=== PATIENT | male | born 1950 | race American Indian/Alaskan Native ===

== ENCOUNTER 2017-06-13 19:35 | Inpatient (IN) | payer MEDICARE, OTHER ==
[2017-06-13] MEDS ORDERED: ASPIRIN PO ONE (20:34)
[2017-06-13 20:51] LABS: Basophils % (Auto) 0.8 % (0.0-1.8); Eosinophils % (Auto) 0.6 % (0.0-4.3); Hematocrit 45.7 % (35.5-45.6); Hemoglobin 14.8 gm/dl (11.8-15.2); Lymphocytes # (Auto) 1.7 K/mm3 (1.2-5.4); Lymphocytes % (Auto) 30.5 % (13.4-35.0); Mean Corpuscular HGB Conc 32 % (32-34); Mean Corpuscular Hemoglobin 30 pg (28-32); Mean Corpuscular Volume 93 fl (84-94); Monocytes # (Auto) 0.5 K/mm3 (0.0-0.8); Monocytes % (Auto) 9.4 % (0.0-7.3); Platelet Count 149 K/mm3 (140-440); Red Blood Count 4.94 M/mm3 (3.65-5.03); Red Cell Distribution Width 15.1 % (13.2-15.2)
[2017-06-13 21:10] LABS: BUN/Creatinine Ratio 13; Blood Urea Nitrogen 10 mg/dL (9-20); Calcium 9.1 mg/dL (8.4-10.2); Hemolysis Index 12
[2017-06-14] MEDS ORDERED: TYLENOL PO ONE (02:55)
[2017-06-14] MEDS ORDERED: TYLENOL ONE (02:56)
--- NOTE | 2017-06-14 10:04 | Emergency Department Report ---
ED Neuro Deficit HPI - General Chief Complaint: Dizziness Stated Complaint: CP Time Seen by Provider: 06/14/17 09:13 Source: patient, RN notes reviewed Mode of arrival: Ambulatory Limitations: No Limitations - History of Present Illness Initial Comments: This is a 66-year-old male. The patient is previously known to this provider. He reports that he does not have a local primary care doctor and denies chronic medical conditions. Patient presents to the ER with a sensation of unsteady gait and headache. The headache is frontal, started yesterday at 2:00 in the afternoon. The headache is not sudden or thunderclap in nature. It did not reach maximal intensity within an hour. It is not the worse headache of his life. There is no neck pain or neck stiffness. Patient denies tinnitus, vertigo, chest pain, shortness of breath, abdominal pain, irritative, obstructive urinary symptoms. Patient reports his sensation of headache and unsteady gait have been intermittent since yesterday, do not radiate anywhere, and did not have exacerbating or relieving factors, with the exception of ambulation, which worsens his sensation of unsteadiness. -: Gradual Location: ataxia Presenting Symptoms: Absent: Weak/Paralyzed One Side, Blurred/Loss of Vision, Facial Droop/Numbness, Unable to Speak Clearly, Altered Mental Status History of same: No Place: home Severity: moderate Quality: other (as per history of present illness) Improves With: none Worsens With: other (as per history of present illness) On Anticoagulants: No Context: gradual onset Associated Symptoms: headaches. denies: confusion, chest pain, cough, diaphoresis, fever/chills, loss of appetite, malise, nausea/vomiting, seizures, shortness of breath, syncope, weakness - Related Data Home Medications: Home Medications Medication Instructions Recorded Confirmed Last Taken Mv-Mn/Iron/Folic Acid/Herb 190 1 each PO 03/15/13 03/15/13 03/14/13 [Vitamin D3 Complete Caplet] Ranitidine HCl [Zantac 300 MG TAB] 300 mg PO 03/15/13 03/15/13 03/14/13 Allergies/Adverse Reactions: Allergies Allergy/AdvReac Type Severity Reaction Status Date / Time No Known Allergies Allergy Verified 06/13/17 19:58 ED Review of Systems ROS: Stated complaint: CP Other details as noted in HPI ED Past Medical Hx - Past Medical History Previous Medical History?: No - Surgical History Past Surgical History?: No - Social History Smoking Status: Current Every Day Smoker Substance Use Type: None - Medications Home Medications: Home Medications Medication Instructions Recorded Confirmed Last Taken Type Mv-Mn/Iron/Folic Acid/Herb 190 1 each PO 03/15/13 03/15/13 03/14/13 History [Vitamin D3 Complete Caplet] Ranitidine HCl [Zantac 300 MG TAB] 300 mg PO 03/15/13 03/15/13 03/14/13 History ED Neuro Physical Exam - General Limitations: No Limitations General appearance: alert, in no apparent distress Suspected Stroke: Yes - Head Head exam: Present: atraumatic, normocephalic - Eye Eye exam: Present: normal appearance, PERRL, EOMI - ENT ENT exam: Present: normal exam, normal orophraynx, mucous membranes moist, normal external ear exam - Neck Neck exam: Present: normal inspection, full ROM - Respiratory Respiratory exam: Present: normal lung sounds bilaterally. Absent: respiratory distress - Cardiovascular Cardiovascular Exam: Present: regular rate, normal rhythm, normal heart sounds. Absent: systolic murmur, diastolic murmur, rubs, gallop - GI/Abdominal GI/Abdominal exam: Present: soft, normal bowel sounds. Absent: distended, tenderness, guarding, rebound, rigid, pulsatile mass - Rectal Rectal exam: Present: deferred - Extremities Exam Extremities exam: Present: normal inspection, full ROM, normal capillary refill. Absent: tenderness, pedal edema, joint swelling, calf tenderness - Back Exam Back exam: Present: normal inspection, full ROM. Absent: tenderness, CVA tenderness (R), paraspinal tenderness, vertebral tenderness - Neurological Exam Neurological exam: Present: alert, oriented X3, CN II-XII intact, other ( Extraocular movements intact. Tongue midline. No facial droop. Facial sensation intact to light touch in the V1, V2, V3 distribution bilaterally. 5 and 5 strength in 4 extremities.. Sensation is intact to light touch in 4 extremities.). Absent: motor sensory deficit - NIHSS Assessment Interval: Baseline 1a. Level of Consciousness: alert 1b. LOC Questions: answers correctly 1c. LOC Commands: performs tasks correctly 2. Best Gaze: normal 3. Visual: no visual loss 4. Facial Palsy: normal symmetrical movement 5b. Motor Arm Right: no drift 5a. Motor Arm Left: no drift 6a. Motor Leg Left: no drift 6b. Motor Leg Right: no drift 7. Limb Ataxia: present 1 limb 8. Sensory: normal 9. Best Language: no aphasia 10. Dysarthria: normal 11. Extinction/Inattention: no abnormality Total Score: 1 Stroke Severity: Minor Stroke - Psychiatric Psychiatric exam: Present: normal affect, normal mood - Skin Skin exam: Present: warm, dry, intact, normal color. Absent: rash ED Course Vital Signs 06/13/17 06/14/17 19:55 03:56 Temperature 98.1 F 98.1 F Pulse Rate 86 78 Respiratory 20 20 Rate Blood Pressure 130/91 158/83 O2 Sat by Pulse 97 97 Oximetry - Lab Data Result diagrams: 06/13/17 20:36 06/13/17 20:36 Lab Results 06/13/17 06/13/17 06/13/17 Range/Units 20:36 20:36 23:26 WBC 5.7 (4.5-11.0) K/mm3 RBC 4.94 (3.65-5.03) M/mm3 Hgb 14.8 (11.8-15.2) gm/dl Hct 45.7 H (35.5-45.6) % MCV 93 (84-94) fl MCH 30 (28-32) pg MCHC 32 (32-34) % RDW 15.1 (13.2-15.2) % Plt Count 149 (140-440) K/mm3 Lymph % (Auto) 30.5 (13.4-35.0) % Rich % (Auto) 9.4 H (0.0-7.3) % Eos % (Auto) 0.6 (0.0-4.3) % Baso % (Auto) 0.8 (0.0-1.8) % Lymph # 1.7 (1.2-5.4) K/mm3 Rich # 0.5 (0.0-0.8) K/mm3 Eos # 0.0 (0.0-0.4) K/mm3 Baso # 0.0 (0.0-0.1) K/mm3 Seg Neutrophils % 58.7 (40.0-70.0) % Seg Neutrophils # 3.3 (1.8-7.7) K/mm3 Sodium 139 (137-145) mmol/L Potassium 4.4 (3.6-5.0) mmol/L Chloride 99.3 (98-107) mmol/L Carbon Dioxide 27 (22-30) mmol/L Anion Gap 17 mmol/L BUN 10 (9-20) mg/dL Creatinine 0.8 (0.8-1.5) mg/dL Estimated GFR > 60 ml/min BUN/Creatinine Ratio 13 % Glucose 118 H (75-100) mg/dL Calcium 9.1 (8.4-10.2) mg/dL Troponin T < 0.010 < 0.010 (0.00-0.029) ng/mL 06/14/17 Range/Units 02:14 WBC (4.5-11.0) K/mm3 RBC (3.65-5.03) M/mm3 Hgb (11.8-15.2) gm/dl Hct (35.5-45.6) % MCV (84-94) fl MCH (28-32) pg MCHC (32-34) % RDW (13.2-15.2) % Plt Count (140-440) K/mm3 Lymph % (Auto) (13.4-35.0) % Rich % (Auto) (0.0-7.3) % Eos % (Auto) (0.0-4.3) % Baso % (Auto) (0.0-1.8) % Lymph # (1.2-5.4) K/mm3 Rich # (0.0-0.8) K/mm3 Eos # (0.0-0.4) K/mm3 Baso # (0.0-0.1) K/mm3 Seg Neutrophils % (40.0-70.0) % Seg Neutrophils # (1.8-7.7) K/mm3 Sodium (137-145) mmol/L Potassium (3.6-5.0) mmol/L Chloride (98-107) mmol/L Carbon Dioxide (22-30) mmol/L Anion Gap mmol/L BUN (9-20) mg/dL Creatinine (0.8-1.5) mg/dL Estimated GFR ml/min BUN/Creatinine Ratio % Glucose (75-100) mg/dL Calcium (8.4-10.2) mg/dL Troponin T < 0.010 (0.00-0.029) ng/mL - EKG Data -: EKG Interpreted by Sd EKG shows normal: sinus rhythm 06/14/17 10:41 Sinus, 70 beats minute, normal axis, normal intervals, not morphologically consistent myocardial infarction - Radiology Data Radiology results: report reviewed, image reviewed Referring Physician: ALONZO ZABALA Patient Name: SUJATA MANCUSO Date of : 1950 Sex: Male Report Date: 2017-06-14 Report Status: Finalized Findings [facility] [address] [id number] Cat Scan Report Signed Patient: SUJATA MANCUSO MR#: [id number] : 1950 Acct:[id number] Age/Sex: 66 / M ADM Date: 06/13/17 Loc: ED Attending Dr: Ordering Physician: ALONZO ZABALA MD Date of Service: 06/14/17 Procedure(s): CT head/brain wo con Accession Number(s): [id number] cc: ALONZO ZABALA MD CT HEAD WITHOUT CONTRAST: 06/14/17 CLINICAL: Ataxia. TECHNIQUE: 2.5-mm noncontrast scans. COMPARISON:None FINDINGS: The ventricles and sulci are normal for age.Large bilateral inferior cerebellar hypodensities are consistent with nonhemorrhagic infarcts of varying ages. The oldest is on the right and measures approximately 4.5 x 2.5 x 1.5 cm. It is uniformly hypodense and measures 13 Hounsfield units. Left cerebellar left cerebellar hypodensity measures 4.6 x 2.9 x 3.3 cm is more heterogeneous and measures 22 Hounsfield units at its lowest level. Mild bilateral periventricular white matter hypodensities in a few tiny bilateral frontal lobe white matter chronic lacunar infarcts. No mass or mass effect. No hemorrhage, edema or extra-axial collection. The sinuses are clear. Normal orbits and soft tissues. The calvarium and skull base are intact. IMPRESSION: Chronic right nonhemorrhagic cerebellar infarct and probable late subacute to chronic left nonhemorrhagic cerebellar infarcts. MRI would be more definitive in determining if there is superimposed acute or early subacute left cerebellar infarct. Transcribed By: REF Dictated By: SANDI SAUNDERS MD Electronically Authenticated By: SANDI SAUNDERS MD Signed Date/Time: 06/14/17954 DD/ 5 - Medical Decision Making Referring Physician: ALONZO ZABALA Patient Name: SUJATA MANCUSO Date of : 1950 Sex: Male Report Date: 2017-06-14 Report Status: Finalized Findings [facility] [address] [place] [address] Cat Scan Report Signed Patient: SUJATA MANCUSO MR#: [id number] : 1950 Acct:[id number] Age/Sex: 66 / M ADM Date: 06/13/17 Loc: ED Attending Dr: Ordering Physician: ALONZO ZABALA MD Date of Service: 06/14/17 Procedure(s): CT head/brain wo con Accession Number(s): [id number] cc: ALONZO ZABALA MD CT HEAD WITHOUT CONTRAST: 06/14/17 CLINICAL: Ataxia. TECHNIQUE: 2.5-mm noncontrast scans. COMPARISON:None FINDINGS: The ventricles and sulci are normal for age.Large bilateral inferior cerebellar hypodensities are consistent with nonhemorrhagic infarcts of varying ages. The oldest is on the right and measures approximately 4.5 x 2.5 x 1.5 cm. It is uniformly hypodense and measures 13 Hounsfield units. Left cerebellar left cerebellar hypodensity measures 4.6 x 2.9 x 3.3 cm is more heterogeneous and measures 22 Hounsfield units at its lowest level. Mild bilateral periventricular white matter hypodensities in a few tiny bilateral frontal lobe white matter chronic lacunar infarcts. No mass or mass effect. No hemorrhage, edema or extra-axial collection. The sinuses are clear. Normal orbits and soft tissues. The calvarium and skull base are intact. IMPRESSION: Chronic right nonhemorrhagic cerebellar infarct and probable late subacute to chronic left nonhemorrhagic cerebellar infarcts. MRI would be more definitive in determining if there is superimposed acute or early subacute left cerebellar infarct. Transcribed By: REF Dictated By: SANDI SAUNDERS MD Electronically Authenticated By: SANDI SAUNDERS MD Signed Date/Time: 06/14/17954 DD/ 5 Differential diagnosis, including would not limited to: Subacute stroke, intracranial hemorrhage Assessment and plan: 66-year-old male who presents with probable subacute stroke as evidenced by physical exam findings and noncontrast CT scan of the brain. Not a TPA candidate as patient presented more than 4.5 hours after symptoms, not an endovascular candidate for similar reasons. His case, physical exam findings and CT scan were transmitted to consult in neurology at [facility], Dr. Alves; he indicates that based on the CT scan findings and physical exam findings the patient does not require transfer at this time, he does recommend aspirin, Lipitor 40 mg, MRI of the brain, and advance imaging of the neck, either CT angiogram, or MR angiogram. He also recommends echocardiogram. He further indicates that he can be contacted at any time if the patient's clinical situation changes or deteriorates. The case was then presents to our Hospital physician, Dr. Suleiman Covington, who graciously accepted the patient to the medical service on behalf of Dr. Aisha Mancuso - Differential Diagnosis Referring Physician:ALONZO ZABALA - Core Measures Measure Exclusions: not indicated - Thrombolytic Inclusion/Exclusion Thrombolytic Exclusion Criteria: Symptom Onset > 3 Hours Critical care attestation.: If time is entered above; I have spent that time in minutes in the direct care of this critically ill patient, excluding procedure time. ED Disposition Clinical Impression: Stroke Disposition: 09 OP ADMIT IP TO THIS HOSP Is pt being admited?: Yes Does the pt Need Aspirin: Yes Condition: Good Referrals: PRIMARY CARE, [Primary Care Provider] - 3-5 Days
--- NOTE | 2017-06-14 10:12 | Cat Scan Report ---
CT HEAD WITHOUT CONTRAST: 06/14/17 CLINICAL: Ataxia. TECHNIQUE: 2.5-mm noncontrast scans. COMPARISON:None FINDINGS: The ventricles and sulci are normal for age.Large bilateral inferior cerebellar hypodensities are consistent with nonhemorrhagic infarcts of varying ages. The oldest is on the right and measures approximately 4.5 x 2.5 x 1.5 cm. It is uniformly hypodense and measures 13 Hounsfield units. Left cerebellar left cerebellar hypodensity measures 4.6 x 2.9 x 3.3 cm is more heterogeneous and measures 22 Hounsfield units at its lowest level. Mild bilateral periventricular white matter hypodensities in a few tiny bilateral frontal lobe white matter chronic lacunar infarcts. No mass or mass effect. No hemorrhage, edema or extra-axial collection. The sinuses are clear. Normal orbits and soft tissues. The calvarium and skull base are intact. IMPRESSION: Chronic right nonhemorrhagic cerebellar infarct and probable late subacute to chronic left nonhemorrhagic cerebellar infarcts. MRI would be more definitive in determining if there is superimposed acute or early subacute left cerebellar infarct.
[2017-06-14] MEDS ORDERED: BABY ASPIRIN PO ONE ×2 (10:46→11:18)
[2017-06-14] MEDS ORDERED: DULCOLAX PR PRN (10:52)
[2017-06-14] MEDS ORDERED: ZOFRAN IV PRN (10:52)
[2017-06-14] MEDS ORDERED: REGLAN PO PRN (10:52)
[2017-06-14] MEDS ORDERED: MILK OF MAGNESIA PO PRN (10:52)
[2017-06-14] MEDS ORDERED: SODIUM CHLORIDE FLUSH SYRINGE 10 ML IV PRN (10:52)
[2017-06-14] MEDS ORDERED: PHENERGAN PR PRN (10:52)
[2017-06-14] MEDS ORDERED: TYLENOL PO PRN (10:52)
[2017-06-14] MEDS ORDERED: PLAVIX PO ONE (11:17)
[2017-06-14] MEDS ORDERED: ATIVAN IV ONE (11:17)
--- NOTE | 2017-06-14 11:20 | History and Physical Report ---
History of Present Illness Date of examination: 06/14/17 Date of admission: 06/14/17 Chief complaint: DIZZINESS WITH HEADACHE History of present illness: Patient is a 66-year-old male with no significant past medical history who presents to the ER with complaints of unsteady gait and headache. He reports that this started about 2 AM in the afternoon he presented to the ER about 7 PM same day. He denies sudden or thunderclap in nature. It did not reach maximal intensity within an hour. It is not the worse headache of his life. There is no neck pain or neck stiffness. Patient reports photophobia and phonophobia but denies history of migraines.Patient denies tinnitus, vertigo, chest pain, shortness of breath, abdominal pain, irritative, obstructive urinary symptoms. The headache he related a 5 foot 10 in intensity. When my examination he was irritated that he had not received any pain medication. Although he denies history of stroke he states that prior to the headaches start in that he did have an emotional arguments with a family member. He was good enough distress that this was not his . He denied any chest pain shortness of breath Patient reports his sensation of headache and unsteady gait have been intermittent since yesterday, do not radiate anywhere, and did not have exacerbating or relieving factors, with the exception of ambulation, which worsens his sensation of unsteadiness. ROS Constitutional: No fever, fatigue or weight loss. Skin: No rash. Eyes: Reports photophobia and phonophobia. No recent vision problems or eye pain. ENT: No congestion, ear pain, or sore throat. Endocrine: No thyroid problems. Cardiovascular: No chest pain. Respiratory: No cough, shortness of breath, congestion, or wheezing. Gastrointestinal: No abdominal pain, nausea, vomiting, or diarrhea. Genitourinary: No dysuria. Musculoskeletal: No joint swelling. Neurologic: Reports ataxic gait but no No seizures, Weak/Paralyzed One Side, Blurred/Loss of Vision, Facial Droop/Numbness, Unable to Speak Clearly, Altered Mental Status Hematologic: No unusual bruising or bleeding. Psychiatric: No psychiatric problems, hallucinations or depression. All other systems reviewed and otherwise negative. Past History Past Medical History: GERD Past Surgical History: No surgical history Social history: , lives with family, full code. denies: smoking, IV drug use Family history: no significant family history Medications and Allergies Allergies Allergy/AdvReac Type Severity Reaction Status Date / Time No Known Allergies Allergy Verified 06/13/17 19:58 Home Medications Medication Instructions Recorded Confirmed Last Taken Type Aspirin 81 mg PO DAILY 06/14/17 06/14/17 1 Day Ago History ~06/13/17 Pantoprazole [Protonix] 40 mg PO QDAY 06/14/17 06/14/17 1 Day Ago History ~06/13/17 Active Meds: Active Medications Acetaminophen (Tylenol) 650 mg PO Q4H PRN PRN Reason: Pain, Mild (1-3) Acetaminophen/Butalbital/Caffeine (Fioricet) 1 tab PO Q4H PRN PRN Reason: Headache Aspirin (Baby Aspirin) 81 mg PO ONCE ONE Stop: 06/14/17 11:19 Atorvastatin Calcium (Lipitor) 40 mg PO QHS DONTE Bisacodyl (Dulcolax) 10 mg [place] QDAY PRN PRN Reason: Constipation Clopidogrel Bisulfate (Plavix) 75 mg PO ONCE ONE Stop: 06/14/17 11:18 Lorazepam (Ativan) 1 mg IV ONCE ONE Stop: 06/14/17 11:18 Magnesium Hydroxide (Milk Of Magnesia) 30 ml PO Q4H PRN PRN Reason: Constipation Metoclopramide HCl (Reglan) 10 mg PO Q6H PRN PRN Reason: Nausea And Vomiting Ondansetron HCl (Zofran) 4 mg IV Q8H PRN PRN Reason: N/V unrelieved by Reglan Promethazine HCl (Phenergan) 25 mg [place] Q6H PRN PRN Reason: Nausea And Vomiting Sodium Chloride (Sodium Chloride Flush Syringe 10 Ml) 10 ml IV PRN PRN PRN Reason: LINE FLUSH Exam - Physical Exam Narrative exam: VITAL SIGNS: Reviewed. GENERAL: The patient appeared well nourished and normally developed. Vital signs as documented. HEAD: No signs of head trauma. EYES: Pupils are equal. Extraocular motions intact. EARS: Hearing grossly intact. MOUTH: Oropharynx is normal. NECK: No adenopathy, no JVD. No tenderness. full range of motion as identified CHEST: Chest with clear breath sounds bilaterally. No wheezes, rales, or rhonchi. CARDIAC: Regular rate and rhythm. S1 and S2, without murmurs, gallops, or rubs. VASCULAR: No Edema. Peripheral pulses normal and equal in all extremities. ABDOMEN: Soft, without detectable tenderness. No sign of distention. No rebound or guarding, and no masses palpated. Bowel Sounds normal. MUSCULOSKELETAL: Good range of motion of all major joints. Extremities without clubbing, cyanosis or edema. NEUROLOGIC EXAM: Alert and oriented x 3. No focal sensory or strength deficits. Gait is not assessed at this time Speech normal. Follows commands. PSYCHIATRIC: Mood irritable. SKIN: No rash or lesions. - Constitutional Vitals: Temp Pulse Resp BP Pulse Ox 98.1 F 78 20 158/83 97 06/14/17 03:56 06/14/17 03:56 06/14/17 03:56 06/14/17 03:56 06/14/17 03:56 Results - Labs CBC & Chem 7: 06/13/17 20:36 06/13/17 20:36 Labs: Laboratory Last Values WBC 5.7 K/mm3 (4.5-11.0) 06/13/17 20:36 RBC 4.94 M/mm3 (3.65-5.03) 06/13/17 20:36 Hgb 14.8 gm/dl (11.8-15.2) 06/13/17 20:36 Hct 45.7 % (35.5-45.6) H 06/13/17 20:36 MCV 93 fl (84-94) 06/13/17 20:36 MCH 30 pg (28-32) 06/13/17 20:36 MCHC 32 % (32-34) 06/13/17 20:36 RDW 15.1 % (13.2-15.2) 06/13/17 20:36 Plt Count 149 K/mm3 (140-440) 06/13/17 20:36 Lymph % (Auto) 30.5 % (13.4-35.0) 06/13/17 20:36 [place] % (Auto) 9.4 % (0.0-7.3) H 06/13/17 20:36 Eos % (Auto) 0.6 % (0.0-4.3) 06/13/17 20:36 Baso % (Auto) 0.8 % (0.0-1.8) 06/13/17 20:36 Lymph # 1.7 K/mm3 (1.2-5.4) 06/13/17 20:36 [place] # 0.5 K/mm3 (0.0-0.8) 06/13/17 20:36 Eos # 0.0 K/mm3 (0.0-0.4) 06/13/17 20:36 Baso # 0.0 K/mm3 (0.0-0.1) 06/13/17 20:36 Seg Neutrophils % 58.7 % (40.0-70.0) 06/13/17 20:36 Seg Neutrophils # 3.3 K/mm3 (1.8-7.7) 06/13/17 20:36 Sodium 139 mmol/L (137-145) 06/13/17 20:36 Potassium 4.4 mmol/L (3.6-5.0) 06/13/17 20:36 Chloride 99.3 mmol/L (98-107) 06/13/17 20:36 Carbon Dioxide 27 mmol/L (22-30) 06/13/17 20:36 Anion Gap 17 mmol/L 06/13/17 20:36 BUN 10 mg/dL (9-20) 06/13/17 20:36 Creatinine 0.8 mg/dL (0.8-1.5) 06/13/17 20:36 Estimated GFR > 60 ml/min 06/13/17 20:36 BUN/Creatinine Ratio 13 % 06/13/17 20:36 Glucose 118 mg/dL (75-100) H 06/13/17 20:36 Calcium 9.1 mg/dL (8.4-10.2) 06/13/17 20:36 Troponin T < 0.010 ng/mL (0.00-0.029) 06/14/17 02:14 - Imaging and Cardiology CT Scan - head: image reviewed (chronic right nonhemorrhagic CVA and also left chronic 2 subacute CVA.) Assessment and Plan Assessment and plan: Patient is a 66-year-old male with no significant past medical history who presents to the ER with complaints of unsteady gait and headache. He reports that this started about 2 AM in the afternoon he presented to the ER about 7 PM same day. He denies sudden or thunderclap in nature. It did not reach maximal intensity within an hour. It is not the worse headache of his life. There is no neck pain or neck stiffness. Patient reports photophobia and phonophobia but denies history of migraines.Patient denies tinnitus, vertigo, chest pain, shortness of breath, abdominal pain, irritative, obstructive urinary symptoms. The headache he related a 5 foot 10 in intensity. When my examination he was irritated that he had not received any pain medication. Although he denies history of stroke he states that prior to the headaches start in that he did have an emotional arguments with a family member. He was good enough distress that this was not his . He denied any chest pain shortness of breath Patient reports his sensation of headache and unsteady gait have been intermittent since yesterday, do not radiate anywhere, and did not have exacerbating or relieving factors, with the exception of ambulation, which worsens his sensation of unsteadiness. CVA With Ataxic gait Anxiety Ataxia Headache Near Syncope Plan MRI BRAIN MRI NECK * Patient refusing to have the above procedure although his reinforces that he will comply. Ativan has been ordered for claustrophobia. Patient understands that if were unable to get this due to his claustrophobia may need to repeat a CT in 48 hours he verbalized understanding but at the same time says that he wants to leave the hospital. He will at least wait for neurology evaluation. PT/OT PLAVIX, SECONDARY TO FAILED ASA STATIN THERAPY NEURO CONSULT XANAX CHECK LIPIDS DVT/GI PROPHY Advance Directives: Yes Plan of care discussed with patient/family: Yes
[2017-06-14] MEDS ORDERED: MORPHINE IV ONE (11:26)
[2017-06-14] MEDS ORDERED: ATIVAN ONE (12:43)
[2017-06-14] MEDS ORDERED: MORPHINE ONE (12:43)
[2017-06-14] MEDS ORDERED: BABY ASPIRIN ONE (12:44)
[2017-06-14] MEDS ORDERED: PLAVIX ONE (12:45)
--- NOTE | 2017-06-14 12:58 | Consultation ---
History of Present Illness Consult date: 06/14/17 History of present illness: patient is seen and further assessed in the ED Markell faulkner two strokes are not at same time plan MRI/MRA and check lipids the BP is well controlled Medications and Allergies Allergies Allergy/AdvReac Type Severity Reaction Status Date / Time No Known Allergies Allergy Verified 06/13/17 19:58 Home Medications Medication Instructions Recorded Confirmed Last Taken Type Mv-Mn/Iron/Folic Acid/Herb 190 1 each PO 03/15/13 03/15/13 03/14/13 History [Vitamin D3 Complete Caplet] Ranitidine HCl [Zantac 300 MG TAB] 300 mg PO 03/15/13 03/15/13 03/14/13 History Active Meds: Active Medications Acetaminophen (Tylenol) 650 mg PO Q4H PRN PRN Reason: Pain, Mild (1-3) Acetaminophen/Butalbital/Caffeine (Fioricet) 1 tab PO Q4H PRN PRN Reason: Headache Atorvastatin Calcium (Lipitor) 40 mg PO QHS DONTE Bisacodyl (Dulcolax) 10 mg [place] QDAY PRN PRN Reason: Constipation Magnesium Hydroxide (Milk Of Magnesia) 30 ml PO Q4H PRN PRN Reason: Constipation Metoclopramide HCl (Reglan) 10 mg PO Q6H PRN PRN Reason: Nausea And Vomiting Ondansetron HCl (Zofran) 4 mg IV Q8H PRN PRN Reason: N/V unrelieved by Reglan Promethazine HCl (Phenergan) 25 mg [place] Q6H PRN PRN Reason: Nausea And Vomiting Sodium Chloride (Sodium Chloride Flush Syringe 10 Ml) 10 ml IV PRN PRN PRN Reason: LINE FLUSH Physical Examination - Vital Signs Vital Signs: Vital Signs Temp Pulse Resp BP Pulse Ox 98.1 F 86 20 130/91 97 06/13/17 19:55 06/13/17 19:55 06/13/17 19:55 06/13/17 19:55 06/13/17 19:55 Results - Laboratory Findings CBC and BMP: 06/13/17 20:36 06/13/17 20:36 Abnormal Lab Findings: Abnormal Labs 06/13/17 06/13/17 20:36 20:36 Hct 45.7 H [place] % (Auto) 9.4 H Glucose 118 H
[2017-06-15] MEDS ORDERED: ASPIRIN PO SCH (10:00)
--- NOTE | 2017-06-15 12:43 | Progress Note ---
Assessment and Plan Assessment and plan: 66-year-old man with no significant past medical history who presented to the hospital with unsteady gait and headache. Stated that headache was mild to moderate assist her with photophobia and phonophobia, he denied any focal weakness Sudden onset of ataxia/? CVA It is extremely unclear this patient's had a CVA bolus admitted on stroke protocol Obtain MRA MRI of brain, he was previously refusing, Ativan has not been ordered case discussed with neurology LDL is at goal at 69, also obtain carotid Dopplers Headache Now resolved, follow MRI of brain Autonomic imbalance Appears to have been more so due to ataxia, no further workup for this Anxiety disorder Anxiolytics as needed History Interval history: Ataxia have not resolved, denies dizziness, denies weakness, denies headache Review of systems Constitutional: No fevers, no malaise, no joint pains CVS: No chest pain, no orthopnea, no dyspnea on exertion, no pedal edema GI: No abdominal pain, no diarrhea, no vomiting, no constipation Respiratory: No shortness of breath, no wheezing, no coughing Hospitalist Physical - Physical exam Narrative exam: General.: Appears well, no distress, nontoxic HEENT: Moist mucous membranes, extraocular muscles intact, no lymphadenopathy Neck: supple Cardiac: S1-S2 heard Lungs: clear to auscultation bilaterally Abdomen: soft , nontender, nondistended, bowel sounds positive Extremities: no edema clubbing or cyanosis Skin: no rash or lesions Neurologic: no gross focal deficits Psych: appropriate behavior, appropriate mood, corporative, judgment intact - Constitutional Vitals: Temp Pulse Resp BP Pulse Ox 98.7 F 61 18 125/60 97 06/15/17 08:32 06/15/17 08:32 06/15/17 08:32 06/15/17 08:32 06/15/17 08:32 Results - Labs CBC & Chem 7: 06/13/17 20:36 06/13/17 20:36 Labs: Laboratory Last Values WBC 5.7 K/mm3 (4.5-11.0) 06/13/17 20:36 RBC 4.94 M/mm3 (3.65-5.03) 06/13/17 20:36 Hgb 14.8 gm/dl (11.8-15.2) 06/13/17 20:36 Hct 45.7 % (35.5-45.6) H 06/13/17 20:36 MCV 93 fl (84-94) 06/13/17 20:36 MCH 30 pg (28-32) 06/13/17 20:36 MCHC 32 % (32-34) 06/13/17 20:36 RDW 15.1 % (13.2-15.2) 06/13/17 20:36 Plt Count 149 K/mm3 (140-440) 06/13/17 20:36 Lymph % (Auto) 30.5 % (13.4-35.0) 06/13/17 20:36 [place] % (Auto) 9.4 % (0.0-7.3) H 06/13/17 20:36 Eos % (Auto) 0.6 % (0.0-4.3) 06/13/17 20:36 Baso % (Auto) 0.8 % (0.0-1.8) 06/13/17 20:36 Lymph # 1.7 K/mm3 (1.2-5.4) 06/13/17 20:36 [place] # 0.5 K/mm3 (0.0-0.8) 06/13/17 20:36 Eos # 0.0 K/mm3 (0.0-0.4) 06/13/17 20:36 Baso # 0.0 K/mm3 (0.0-0.1) 06/13/17 20:36 Seg Neutrophils % 58.7 % (40.0-70.0) 06/13/17 20:36 Seg Neutrophils # 3.3 K/mm3 (1.8-7.7) 06/13/17 20:36 Sodium 139 mmol/L (137-145) 06/13/17 20:36 Potassium 4.4 mmol/L (3.6-5.0) 06/13/17 20:36 Chloride 99.3 mmol/L (98-107) 06/13/17 20:36 Carbon Dioxide 27 mmol/L (22-30) 06/13/17 20:36 Anion Gap 17 mmol/L 06/13/17 20:36 BUN 10 mg/dL (9-20) 06/13/17 20:36 Creatinine 0.8 mg/dL (0.8-1.5) 06/13/17 20:36 Estimated GFR > 60 ml/min 06/13/17 20:36 BUN/Creatinine Ratio 13 % 06/13/17 20:36 Glucose 118 mg/dL (75-100) H 06/13/17 20:36 Calcium 9.1 mg/dL (8.4-10.2) 06/13/17 20:36 Troponin T < 0.010 ng/mL (0.00-0.029) 06/14/17 02:14 Triglycerides 65 mg/dL (2-149) 06/15/17 05:13 Cholesterol 123 mg/dL (50-199) 06/15/17 05:13 LDL Cholesterol Direct 69 mg/dL (50-130) 06/15/17 05:13 HDL Cholesterol 41 mg/dL (40-59) 06/15/17 05:13 Cholesterol/HDL Ratio 3.00 % 06/15/17 05:13
[2017-06-15] MEDS ORDERED: ATIVAN IV NR (12:45)
[2017-06-15] MEDS ORDERED: ASPIRIN PO ONE (13:27)
--- NOTE | 2017-06-15 14:47 | Magnetic Resonance Report ---
FINAL REPORT PROCEDURE: MRA of the brain without gadolinium enhancement TECHNIQUE: Axial 3-D [id number] MR angiography of the [place] and brain was performed. The source images were reconstructed in various views using maximum intensity projection. HISTORY: sudden ataxia COMPARISON: No prior studies are available for comparison. FINDINGS: Visualized internal carotid arteries appear widely patent. The A1 segments anterior cerebral arteries and middle cerebral arteries also appear widely patent. No evidence of occlusion, focal stenosis, aneurysm or vascular malformation identified. Vertebral arteries appear widely patent as does the basilar artery and both posterior cerebral arteries. No evidence of aneurysm, stenosis or occlusion. No vascular malformation identified. MRI of the brain was not obtained however there appears to be a well-defined area of encephalomalacia in the posterior inferior aspect of the right cerebellar hemisphere on the 3D [id number] axial source images.. IMPRESSION: Negative exam. The anterior and the posterior circulation are intact and unremarkable. Well-defined area of encephalomalacia suspected posterior inferior aspect of the right cerebellar hemisphere as described.
--- NOTE | 2017-06-15 15:37 | Magnetic Resonance Report ---
FINAL REPORT PROCEDURE: MR BRAIN WO CON TECHNIQUE: Magnetic resonance imaging of the brain was performed without contrast material. HISTORY: sudden ataxia COMPARISON: No prior studies are available for comparison. FINDINGS: There is no evidence of intracranial hemorrhage. No parenchymal hemorrhage mass lesions or mass effect are identified. There is a large area of restricted diffusion seen in the left cerebellar hemisphere and left cerebellar tonsil. This shows increased T2 signal, mild decreased T1 signal. The appearance is consistent with an acute ischemic infarction. No other abnormal areas of restricted diffusion are identified. Moderate-sized old area of encephalomalacia is visualized in the right cerebellar hemisphere. There is mild increased T2 signal in the periventricular white matter and deep white matter consistent with gliosis related to microvascular disease or white matter changes of aging. Small old lacunar infarct appears to be present in the left caudate nucleus and 1 in the right putamen posteriorly. The ventricles are normal size and are midline. No abnormal extra-axial fluid collections or masses are identified. Corpus callosum, region of the pituitary fossa and the foramina magnum are unremarkable. There appears to be nonspecific mineralization of the basal ganglia bilaterally. There is patchy mucosal disease in a few of the ethmoid air cells anteriorly on the left. Paranasal sinuses otherwise appear clear. Mastoid air cells are clear. IMPRESSION: Large acute ischemic infarction left cerebellar hemisphere and left cerebellar tonsil. Old moderate-size area of encephalomalacia visualized right cerebellar hemisphere. There is mild gliosis. Small old lacunar infarcts are present as described. Critical value: These findings were discussed in detail with Dr. Diego by phone conversation on 06/15/2017 at 3:31 p.m. Eastern standard time.
--- NOTE | 2017-06-15 16:36 | Consultation ---
ROOM NUMBER: [id number]. HISTORY OF PRESENT ILLNESS: This is a 66-year-old black male that presented to the Emergency Room of [facility] with complaints of persistent vertigo. He does not have a prior history of having strokes. When he presented to the Emergency Room he was weak, dizzy, had headaches, previously that he has been taking aspirin therapy 81 mg, pantoprazole for gastric reflux. He does not recall he had a stroke previously. ALLERGIES: He has no known allergies. SOCIAL HISTORY: He is . His is here with him. Denies smoking, denies drinking. PHYSICAL EXAMINATION: Current blood pressure is 137/80, pulse rate is 80. The patient's pO2 on room air is 99%. His ocular movements are full. His review consultant strength is equal. He has slight ataxia of bilateral upper extremities. Neck is supple. Distal extremities revealed no edema. The patient's motor tone is symmetrical without evidence of any focal motor weakness. The patient's affect is appropriate. Memory is good, it is oriented x 3 and fully appropriate. IMPRESSION: This patient has bilateral cerebellar strokes somewhat more so on the right than left. These are chronic. Interestingly, the patient does not provide much of a history of when these occurred. These do not appear to be acute and from reviewing the CT there is appearance of the right and left side being asymmetrical. I will get an MRI/MRA. This will further be assessed. Should have an echo, lipid profile in order to further assess and reduce his stroke risk factors. PLAN: Admission, further workup. I spoke with family, gave him an evaluation and advised as to the current treatment. JOB# [id number] ANDREW/NTS
[2017-06-15] MEDS: FIORICET PO PRN ×2 (17:11→21:07)
[2017-06-15] MEDS: PROTONIX PO SCH (20:23)
[2017-06-16] MEDS: PROTONIX PO SCH (09:44)
[2017-06-16] MEDS ORDERED: XANAX PO PRN (14:08)
--- NOTE | 2017-06-16 15:16 | Progress Note ---
Assessment and Plan Assessment and plan: 66-year-old man with no significant past medical history who presented to the hospital with unsteady gait and headache. Stated that headache was mild to moderate assist her with photophobia and phonophobia, he denied any focal weakness Acute CVA with infarct left cerebellar cva case dw neurologist change from aspirin to aggrenox as he has failed aspirin LDL is at goal at 69, carotid Dopplers show no significant obstruction Headache Now resolved,has hx of migraines Autonomic imbalance Appears to have been more so due to ataxia, no further workup for this Anxiety disorder Anxiolytics as needed History Interval history: Ataxia have not resolved, still has trouble with balance on his left side, denies dizziness, denies weakness, denies headache Review of systems Constitutional: No fevers, no malaise, no joint pains CVS: No chest pain, no orthopnea, no dyspnea on exertion, no pedal edema GI: No abdominal pain, no diarrhea, no vomiting, no constipation Respiratory: No shortness of breath, no wheezing, no coughing Hospitalist Physical - Physical exam Narrative exam: General.: Appears well, no distress, nontoxic HEENT: Moist mucous membranes, extraocular muscles intact, no lymphadenopathy Neck: supple Cardiac: S1-S2 heard Lungs: clear to auscultation bilaterally Abdomen: soft , nontender, nondistended, bowel sounds positive Extremities: no edema clubbing or cyanosis Skin: no rash or lesions Neurologic: ataxic gait, leans to left side Psych: appropriate behavior, appropriate mood, corporative, judgment intact - Constitutional Vitals: Temp Pulse Resp BP Pulse Ox 98.8 F 72 18 126/70 96 06/16/17 11:38 06/16/17 11:38 06/16/17 11:38 06/16/17 11:38 06/16/17 11:38 Results - Labs CBC & Chem 7: 06/13/17 20:36 06/13/17 20:36 Labs: Laboratory Last Values WBC 5.7 K/mm3 (4.5-11.0) 06/13/17 20:36 RBC 4.94 M/mm3 (3.65-5.03) 06/13/17 20:36 Hgb 14.8 gm/dl (11.8-15.2) 06/13/17 20:36 Hct 45.7 % (35.5-45.6) H 06/13/17 20:36 MCV 93 fl (84-94) 06/13/17 20:36 MCH 30 pg (28-32) 06/13/17 20:36 MCHC 32 % (32-34) 06/13/17 20:36 RDW 15.1 % (13.2-15.2) 06/13/17 20:36 Plt Count 149 K/mm3 (140-440) 06/13/17 20:36 Lymph % (Auto) 30.5 % (13.4-35.0) 06/13/17 20:36 [place] % (Auto) 9.4 % (0.0-7.3) H 06/13/17 20:36 Eos % (Auto) 0.6 % (0.0-4.3) 06/13/17 20:36 Baso % (Auto) 0.8 % (0.0-1.8) 06/13/17 20:36 Lymph # 1.7 K/mm3 (1.2-5.4) 06/13/17 20:36 [place] # 0.5 K/mm3 (0.0-0.8) 06/13/17 20:36 Eos # 0.0 K/mm3 (0.0-0.4) 06/13/17 20:36 Baso # 0.0 K/mm3 (0.0-0.1) 06/13/17 20:36 Seg Neutrophils % 58.7 % (40.0-70.0) 06/13/17 20:36 Seg Neutrophils # 3.3 K/mm3 (1.8-7.7) 06/13/17 20:36 Sodium 139 mmol/L (137-145) 06/13/17 20:36 Potassium 4.4 mmol/L (3.6-5.0) 06/13/17 20:36 Chloride 99.3 mmol/L (98-107) 06/13/17 20:36 Carbon Dioxide 27 mmol/L (22-30) 06/13/17 20:36 Anion Gap 17 mmol/L 06/13/17 20:36 BUN 10 mg/dL (9-20) 06/13/17 20:36 Creatinine 0.8 mg/dL (0.8-1.5) 06/13/17 20:36 Estimated GFR > 60 ml/min 06/13/17 20:36 BUN/Creatinine Ratio 13 % 06/13/17 20:36 Glucose 118 mg/dL (75-100) H 06/13/17 20:36 Calcium 9.1 mg/dL (8.4-10.2) 06/13/17 20:36 Troponin T < 0.010 ng/mL (0.00-0.029) 06/14/17 02:14 Triglycerides 65 mg/dL (2-149) 06/15/17 05:13 Cholesterol 123 mg/dL (50-199) 06/15/17 05:13 LDL Cholesterol Direct 69 mg/dL (50-130) 06/15/17 05:13 HDL Cholesterol 41 mg/dL (40-59) 06/15/17 05:13 Cholesterol/HDL Ratio 3.00 % 06/15/17 05:13 - Imaging and Cardiology MRI - head: image reviewed (extensive stroke involving left cerebellum and tonsils)
[2017-06-16] MEDS: FIORICET PO PRN (20:18)
[2017-06-16] MEDS: HABITROL TD SCH (20:19)
[2017-06-16] MEDS: AGGRENOX PO SCH (21:24)
[2017-06-17] MEDS: PROTONIX PO SCH (09:03)
[2017-06-17] MEDS: AGGRENOX PO SCH (09:03)
[2017-06-17] MEDS: HABITROL TD SCH (09:03)
[2017-06-17] MEDS: FIORICET PO PRN (09:04)
[2017-06-17] MEDS ORDERED: ASPIRIN PO SCH (10:00)
--- NOTE | 2017-06-17 14:09 | Discharge Summary ---
Providers - Providers Date of Admission: 06/14/17 10:46 Attending physician: MARCIE SAENZ MD 06/14/17 Consult to Physician [CONS] Routine Consulting Provider: SANDI KASPER Reason For Exam: cva Place consult to:: NEURO Notified:: Y Was contact made?: Yes If yes, spoke with:: Haleigh/Ja VICTOR Time called:: 12:00 06/14/17 10:52 Consult to Case Management [CONS] Routine Services Needed at Discharge: Home Health Services Notified:: Case management Consult to Dietitian/Nutrition [CONS] Routine Physician Instructions: Reason For Exam: Reason for Consult: Nutrition Recommendations Reason for Consult: Malnutrition Occupational Therapy Evaluate and Treat [CONS] Routine Comment: Reason For Exam: Neuro deficits Physical Therapy Evaluation and Treat [CONS] Routine Comment: Reason For Exam: Neuro deficits 06/14/17 10:57 Occupational Therapy Evaluate and Treat [CONS] Routine Comment: Reason For Exam: cva Physical Therapy Evaluation and Treat [CONS] Routine Comment: Reason For Exam: cva Primary care physician: [employer]GANIZATIONAL EFFECTIVENESS CONSULTANT Hospitalization Condition: Good Hospital course: 66-year-old man with no significant past medical history who presented to the hospital with unsteady gait and headache. Stated that headache was mild to moderate assist her with photophobia and phonophobia, he denied any focal weakness. He was found to have acute CVA with infarct, extensive CVA of the left cerebellum. As patient was already on aspirin and had failed. He was Advanced to Aggrenox. His medications optimized, and carotid Doppler showed no significant stenosis. He received neurology consultation. He also received physical therapy and was recommended for a cane for ambulation. He was also counseled on tobacco cessation Discharge diagnoses Acute cerebellar CVA with infarct Headache Autonomic imbalance Anxiety disorder Ataxia tobacco abuse Disposition: DC-01 TO HOME OR SELFCARE Time spent for discharge: 33 minutes Core Measure Documentation - Palliative Care Palliative Care/ Comfort Measures: Not Applicable - Core Measures Any of the following diagnoses?: stroke - Stroke Discharge Requirements Statin for LDL = or >70 mg/dl on DC: Not Applicable Anticoag for atrial fib/atrial flutter: Not Applicable Antithrombotic for ischemic stroke: Yes Exam - Physical Exam Narrative exam: General.: Appears well, no distress, nontoxic HEENT: Moist mucous membranes, extraocular muscles intact, no lymphadenopathy Neck: supple Cardiac: S1-S2 heard Lungs: clear to auscultation bilaterally Abdomen: soft , nontender, nondistended, bowel sounds positive Extremities: no edema clubbing or cyanosis Skin: no rash or lesions Neurologic: ataxic gait, leans to left side Psych: appropriate behavior, appropriate mood, corporative, judgment intact - Constitutional Vitals: Temp Pulse Resp BP Pulse Ox 97.9 F 68 16 117/66 96 06/17/17 08:29 06/17/17 11:00 06/17/17 09:25 06/17/17 08:29 06/17/17 08:29 Plan Follow up with: PRIMARY CARE, [Primary Care Provider] - 3-5 Days Prescriptions: Pravastatin [Pravachol] 20 mg PO QHS #30 tablet ALPRAZolam [Xanax TAB] 0.5 mg PO Q8H PRN #20 tablet PRN Reason: Anxiety Aspirin/Dipyridamole [Aggrenox] 1 cap PO BID #60 capsule Butalb/Acetamin/Caff 50-325-40 [Fioricet] 1 tab PO Q4H PRN #30 tablet PRN Reason: Headache Nicotine [Habitrol] 21 mg TD QDAY #30 patch Pantoprazole [Protonix TAB] 40 mg PO QDAY #30 tablet Other Discharge Orders: Physicial Therapy (Amb) Location: Determined By Patient Cane (Amb) Location: Determined By Patient
[2017-06-17 16:02] VITALS: BP 133/69
--- NOTE | 2017-06-20 17:49 | Vascular Lab Report ---
CAROTID DUPLEX STUDY: RIGHT PSVEDV CCA PROX:7816 CCA DIST:7915 ICA PROX:5113 ICA MID:5319 ICA DIST:5112 ECA: 79 VERT: 40 10 LEFT PSVEDV CCA PROX:69183 CCA DIST:9318 ICA PROX:4512 ICA MID:6823 ICA DIST:6219 ECA: 64 VERT: 51 10 REASON FOR EXAM: Ataxia. COMMENTS ON THE RIGHT: Doppler frequency analysis is consistent with 16 to 49 percent diameter reduction of the internal carotid artery. Minimal amount of plaque is seen. The common carotid artery is patent. The external carotid artery is patent. The vertebral artery has antegrade flow. COMMENTS ON THE LEFT: Doppler frequency analysis is consistent with 16 to 49 percent diameter reduction of the internal carotid artery. Minimal amount of plaque is seen. The common carotid artery is patent. The external carotid artery is patent. The vertebral artery has antegrade flow. IMPRESSION: Less than 50% diameter reduction in the internal carotid arteries bilaterally.
== END 2017-06-17 16:22 | disposition home or self-care (01) | DRG 66 ==
LOC: ED 19:35 → 4A 06-14 10:46
PROVIDERS: ADMIT Internal Medicine; ATTEND Internal Medicine
DX: I63.9 Cerebral infarction, unspecified (principal); G90.8 Other disorders of autonomic nervous system; H53.149 Visual discomfort, unspecified; K21.9 Gastro-esophageal reflux disease without esophagitis; Z79.82 Long term (current) use of aspirin; Z79.899 Other long term (current) drug therapy; F17.200 Nicotine dependence, unspecified, uncomplicated; F40.298 Other specified phobia; F41.9 Anxiety disorder, unspecified; R27.0 Ataxia, unspecified
CPT/HCPCS: 36415; 70450; 70544; 70551; 80048; 80061; 84484; 85025; 93005; 93010; 93880; 96374; 99406; A9270-GY; G8987-GO; G8988-GO; G8989-GO; J2060; J2270

== ENCOUNTER 2021-10-19 21:15 | Emergency (ER) | payer MEDICARE ==
[2021-10-20 05:03] LABS: BUN/Creatinine Ratio 24; Blood Urea Nitrogen 22 mg/dL (9-20); Calcium 8.4 mg/dL (8.4-10.2); Hemolysis Index 24
[2021-10-20 05:05] LABS: Hematocrit 35.2 % (35.5-45.6); Hemoglobin 11.4 gm/dl (11.8-15.2); Mean Corpuscular HGB Conc 32 % (32-34); Mean Corpuscular Volume 102 fl (84-94); Red Blood Count 3.44 M/mm3 (3.65-5.03); Red Cell Distribution Width 16.3 % (13.2-15.2)
[2021-10-20] MEDS ORDERED: SODIUM CHLORIDE 0.9% 1000 ML 1,000 ML IV ONE (05:39)
[2021-10-20] MEDS ORDERED: ONDANSETRON 4 MG/2 ML INJ IV ONE (05:39)
[2021-10-20] MEDS ORDERED: ACETAMINOPHEN 325 MG TAB PO ONE (05:39)
[2021-10-20 06:50] LABS: Anisocytosis 1+; Basophils % (Manual) 0 % (0.0-1.8); Eosinophils % (Manual) 0 % (0.0-4.3); Macrocytosis 1+; Platelet Estimate Consistent w Auto; Total Cells Counted 100
[2021-10-20 06:51] LABS: Platelet Count 38 K/mm3 (140-440)
--- NOTE | 2021-10-20 07:10 | Emergency Department Report ---
HPI - General Chief Complaint: Weakness Time Seen by Provider: 10/20/21 06:52 - HPI HPI: Room 6 Patient is a 70-year-old male present with chief complaint of nausea vomiting and falls. The patient states his symptoms began when he awakened on 10/15/2021. Patient states his legs felt weak make it difficult to get out of bed. Patient states he eventually got out of bed and then felt dizzy while going up the stairs and fell. Patient states the following day he developed intractable nausea and vomiting has been unable to tolerate food. Patient states she has been able to keep water down. Patient denies diarrhea. The patient states she has fallen a total of 3 times since the onset of his symptoms and has occasional dyspnea on exertion. Patient denies cough or chest pain. Patient denies bright red blood per rectum or melena. Patient denies ever losing consciousness. Patient denies history of fever. When asked how he is feeling currently the patient states he feels "fine." ED Past Medical Hx - Past Medical History Hx Hypertension: Yes Hx CVA: Yes (Residual left-sided weakness) - Surgical History Past Surgical History?: No - Social History Smoking Status: Former Smoker (None x5-years) Substance Use Type: None (Denies illicit drug use) - Medications Home Medications: Home Medications Medication Instructions Recorded Confirmed Last Taken Type raNITIdine HCl [Zantac] 150 mg PO BID 06/17/18 06/17/18 Unknown History traMADoL [Ultram 50 MG tab] 50 mg PO DAILY PRN 06/17/18 06/17/18 Unknown History Aspirin EC [Ecotrin] 325 mg PO QDAY #30 tablet 06/19/18 Unknown Rx Nicotine [Habitrol] 21 mg TD QDAY #14 patch 06/19/18 Unknown Rx Pravastatin [Pravachol] 40 mg PO QHS #60 tablet 06/19/18 Unknown Rx Ondansetron [Zofran ODT TAB] 8 mg PO Q8HR #20 tab.rapdis 10/20/21 Unknown Rx ED Review of Systems ROS: Stated complaint: POSS STROKE Other details as noted in HPI Constitutional: weakness. denies: fever Eyes: denies: eye pain ENT: denies: throat pain Respiratory: SOB with exertion Cardiovascular: denies: chest pain Endocrine: no symptoms reported Gastrointestinal: nausea, vomiting. denies: abdominal pain, diarrhea Genitourinary: denies: dysuria Musculoskeletal: denies: back pain Neurological: other (Dizziness). denies: headache Physical Exam - Physical Exam Vital Signs: Vital Signs 10/19/21 10/20/21 21:20 05:30 Temperature 99.4 F 99.3 F Pulse Rate 122 H 110 H Respiratory 14 20 Rate Blood Pressure 131/75 Blood Pressure 122/74 [Left] O2 Sat by Pulse 87 96 Oximetry Physical Exam: GENERAL: The patient is well-developed well-nourished male lying on stretcher not appearing to be in acute distress. [] HEENT: Normocephalic. Atraumatic. Extraocular motions are intact. Patient has moist mucous membranes. NECK: Supple. Trachea midline CHEST/LUNGS: Clear to auscultation. There is no respiratory distress noted. HEART/CARDIOVASCULAR: Regular. There is tachycardia. There is no gallop rub or murmur. ABDOMEN: Abdomen is soft, nontender. Patient has normal bowel sounds. There is no abdominal distention. SKIN: There is no rash. There is no edema. There is no diaphoresis. NEURO: The patient is awake, alert, and oriented. The patient is cooperative. The patient has residual left-sided weakness from previous CVA. The patient has normal speech. Cranial nerves II through XII grossly intact with exception of cranial nerve XI on the left MUSCULOSKELETAL: There is no evidence of acute injury. ED Course Vital Signs 10/19/21 10/20/21 21:20 05:30 Temperature 99.4 F 99.3 F Pulse Rate 122 H 110 H Respiratory 14 20 Rate Blood Pressure 131/75 Blood Pressure 122/74 [Left] O2 Sat by Pulse 87 96 Oximetry - Reevaluation(s) Reevaluation #1: 10/20/21 11:58 Patient tolerating p.o. - Consultations Consultation #1: 10/20/21 10:29 GI paged 10/20/21 10:[address] Lora-if patient passes p.o. challenge and LFTs are within normal limits, the patient may be followed up as an outpatient Consultation #2: 10/20/21 11:56 Case discussed with patient's primary physician Dr. Queen-states the patient should follow-up in the office next week ED Medical Decision Making - Lab Data Result diagrams: 10/20/21 04:12 10/20/21 04:12 Laboratory Tests 10/20/21 10/20/21 10/20/21 04:12 04:12 05:11 WBC 10.3 RBC 3.44 L Hgb 11.4 L Hct 35.2 L MCV 102 H MCH 33 H MCHC 32 RDW 16.3 H Plt Count 38 L [place] % (Auto) Hand Candy Cutter Add Manual Diff Complete Total Counted 100 Seg Neuts % (Manual) 80.0 H Band Neutrophils % 0 Lymphocytes % (Manual) 12.0 L Reactive Lymphs % (Man) 0 Monocytes % (Manual) 8.0 H Eosinophils % (Manual) 0 Basophils % (Manual) 0 Metamyelocytes % 0 Myelocytes % 0 Promyelocytes % 0 Blast Cells % 0 Nucleated RBC % Not Reportable Seg Neutrophils # Man 8.2 H Band Neutrophils # 0.0 Lymphocytes # (Manual) 1.2 Abs React Lymphs (Man) 0.0 Monocytes # (Manual) 0.8 Eosinophils # (Manual) 0.0 Basophils # (Manual) 0.0 Metamyelocytes # 0.0 Myelocytes # 0.0 Promyelocytes # 0.0 Blast Cells # 0.0 WBC Morphology Not Reportable Hypersegmented Neuts Not Reportable Hyposegmented Neuts Not Reportable Hypogranular Neuts Not Reportable Smudge Cells Not Reportable Toxic Granulation Not Reportable Toxic Vacuolation Not Reportable Dohle Bodies Not Reportable Pelger-Huet Anomaly Not Reportable Enzo Rods Not Reportable Platelet Estimate Consistent w auto Clumped Platelets Not Reportable Plt Clumps, EDTA Not Reportable Large Platelets Not Reportable Giant Platelets Not Reportable Platelet Satelliting Not Reportable Plt Morphology Comment Not Reportable RBC Morphology Not Reportable Dimorphic RBCs Not Reportable Polychromasia Not Reportable Hypochromasia Not Reportable Poikilocytosis Not Reportable Anisocytosis 1+ Microcytosis Not Reportable Macrocytosis 1+ Spherocytes Not Reportable Pappenheimer Bodies Not Reportable Sickle Cells Not Reportable Target Cells Not Reportable Tear Drop Cells Not Reportable Ovalocytes Not Reportable Helmet Cells Not Reportable [place] Bodies Not Reportable Talala Rings Not Reportable Joe Cells Not Reportable Bite Cells Not Reportable Crenated Cell Not Reportable Elliptocytes Not Reportable Acanthocytes (Spur) Not Reportable Rouleaux Not Reportable Hemoglobin C Crystals Not Reportable Schistocytes Not Reportable Malaria parasites Not Reportable Dick Bodies Not Reportable Hem Pathologist Commnt No Sodium 129 L Potassium 4.2 Chloride 90.5 L Carbon Dioxide 22 Anion Gap 21 BUN 22 H Creatinine 0.9 Estimated GFR > 60 BUN/Creatinine Ratio 24 Glucose 170 H POC Glucose 168 H Calcium 8.4 Magnesium Total Bilirubin Direct Bilirubin Indirect Bilirubin AST ALT Alkaline Phosphatase Total Creatine Kinase CK-MB (CK-2) CK-MB (CK-2) Rel Index Troponin T Total Protein Albumin Albumin/Globulin Ratio Lipase TSH Free T4 10/20/21 10/20/21 10/20/21 07:23 07:23 07:23 WBC RBC Hgb Hct MCV MCH MCHC RDW Plt Count [place] % (Auto) Add Manual Diff Total Counted Seg Neuts % (Manual) Band Neutrophils % Lymphocytes % (Manual) Reactive Lymphs % (Man) Monocytes % (Manual) Eosinophils % (Manual) Basophils % (Manual) Metamyelocytes % Myelocytes % Promyelocytes % Blast Cells % Nucleated RBC % Seg Neutrophils # Man Band Neutrophils # Lymphocytes # (Manual) Abs React Lymphs (Man) Monocytes # (Manual) Eosinophils # (Manual) Basophils # (Manual) Metamyelocytes # Myelocytes # Promyelocytes # Blast Cells # WBC Morphology Hypersegmented Neuts Hyposegmented Neuts Hypogranular Neuts Smudge Cells Toxic Granulation Toxic Vacuolation Dohle Bodies Pelger-Huet Anomaly Enzo Rods Platelet Estimate Clumped Platelets Plt Clumps, EDTA Large Platelets Giant Platelets Platelet Satelliting Plt Morphology Comment RBC Morphology Dimorphic RBCs Polychromasia Hypochromasia Poikilocytosis Anisocytosis Microcytosis Macrocytosis Spherocytes Pappenheimer Bodies Sickle Cells Target Cells Tear Drop Cells Ovalocytes Helmet Cells [place] Bodies Talala Rings Joe Cells Bite Cells Crenated Cell Elliptocytes Acanthocytes (Spur) Rouleaux Hemoglobin C Crystals Schistocytes Malaria parasites Dick Bodies Hem Pathologist Commnt Sodium Potassium Chloride Carbon Dioxide Anion Gap BUN Creatinine Estimated GFR BUN/Creatinine Ratio Glucose POC Glucose Calcium Magnesium 2.00 Total Bilirubin Direct Bilirubin Indirect Bilirubin AST ALT Alkaline Phosphatase Total Creatine Kinase 108 CK-MB (CK-2) 1.5 CK-MB (CK-2) Rel Index 1.3 Troponin T < 0.010 Total Protein Albumin Albumin/Globulin Ratio Lipase 52 TSH 3.240 Free T4 1.02 10/20/21 07:23 WBC RBC Hgb Hct MCV MCH MCHC RDW Plt Count [place] % (Auto) Add Manual Diff Total Counted Seg Neuts % (Manual) Band Neutrophils % Lymphocytes % (Manual) Reactive Lymphs % (Man) Monocytes % (Manual) Eosinophils % (Manual) Basophils % (Manual) Metamyelocytes % Myelocytes % Promyelocytes % Blast Cells % Nucleated RBC % Seg Neutrophils # Man Band Neutrophils # Lymphocytes # (Manual) Abs React Lymphs (Man) Monocytes # (Manual) Eosinophils # (Manual) Basophils # (Manual) Metamyelocytes # Myelocytes # Promyelocytes # Blast Cells # WBC Morphology Hypersegmented Neuts Hyposegmented Neuts Hypogranular Neuts Smudge Cells Toxic Granulation Toxic Vacuolation Dohle Bodies Pelger-Huet Anomaly Enzo Rods Platelet Estimate Clumped Platelets Plt Clumps, EDTA Large Platelets Giant Platelets Platelet Satelliting Plt Morphology Comment RBC Morphology Dimorphic RBCs Polychromasia Hypochromasia Poikilocytosis Anisocytosis Microcytosis Macrocytosis Spherocytes Pappenheimer Bodies Sickle Cells Target Cells Tear Drop Cells Ovalocytes Helmet Cells Merc[place] Bodies Talala Rings [place] Cells Bite Cells Crenated Cell Elliptocytes Acanthocytes (Spur) Rouleaux Hemoglobin C Crystals Schistocytes Malaria parasites Dick Bodies Hem Pathologist Commnt Sodium Potassium Chloride Carbon Dioxide Anion Gap BUN Creatinine Estimated GFR BUN/Creatinine Ratio Glucose POC Glucose Calcium Magnesium Total Bilirubin 1.90 H Direct Bilirubin 0.8 H Indirect Bilirubin 1.1 AST 35 ALT 44 Alkaline Phosphatase 96 Total Creatine Kinase CK-MB (CK-2) CK-MB (CK-2) Rel Index Troponin T Total Protein 6.7 Albumin 3.7 L Albumin/Globulin Ratio 1.2 Lipase TSH Free T4 - Radiology Data Radiology results: image reviewed (CT head, CTA chest, CT abdomen pelvis) [facility] [address] [place] [address] Cat Scan Report Signed Patient: SUJATA MANCUSO MR#: [id number] : 1950 Acct:[id number] Age/Sex: 70 / M ADM Date: 10/19/21 Loc: ED Attending Dr: Ordering Physician: BLUE NEW MD Date of Service: 10/20/21 Procedure(s): CT head/brain wo con Accession Number(s): [id number] cc: BLUE NEW MD CT HEAD WITHOUT CONTRAST INDICATION / CLINICAL INFORMATION: Dizziness. TECHNIQUE: All CT scans at this location are performed using CT dose reduction for ALARA by means of automated exposure control. COMPARISON: MRI from 06/18/2018 FINDINGS: BRAIN PARENCHYMA: No acute intracranial hemorrhage. No evidence of recent infarct. No mass effect or midline shift. Encephalomalacia related to remote infarcts involving the cerebellar hemispheres bilaterally, unchanged from 2019 MRI. VENTRICULAR SYSTEM/EXTRA-AXIAL SPACES: Age-related cerebral atrophy. No extra-axial fluid collection. ORBITS: No acute findings SKELETAL SYSTEM/SOFT TISSUES: Normal bones and soft tissues. PARANASAL SINUSES/MASTOID AIR CELLS: No significant abnormality. ADDITIONAL FINDINGS: None. IMPRESSION: 1. No acute findings. 2. Stable chronic ischemic changes related to remote infarcts of the cerebellum. Signer Name: Sharlene Null MD Signed: 10/20/2021 8:45 AM Workstation Name: [id number] Transcribed By: JS Dictated By: SHARLENE NULL MD Electronically Authenticated By: SHARLENE NULL MD Signed Date/Time: 10/20/21844 DD/ 9 TD/TT: [facility] [address] [place] [address] Cat Scan Report Signed Patient: SUJATA MANCUSO MR#: [id number] : [birth year] Acct:[id number] Age/Sex: 70 / M ADM Date: 10/19/21 Loc: ED Attending Dr: Ordering Physician: BLUE NEW MD Date of Service: 10/20/21 Procedure(s): CT angio chest Accession Number(s): [id number] cc: BLUE NEW MD CT angio chest INDICATION / CLINICAL INFORMATION: Shortness of breath, tachycardia. TECHNIQUE: Axial CT images were obtained through the chest after injection of IV contrast. 3 plane MIP and/or 3D reconstructions were produced. All CT scans at this location are performed using CT dose reduction for ALARA by means of automated exposure control. COMPARISON: Chest radiograph from 06/18/2018. FINDINGS: PULMONARY ARTERIES: No central or segmental pulmonary embolus. THORACIC AORTA: Mild atherosclerotic calcification without acute abnormality. HEART: No significant abnormality. CORONARY ARTERY CALCIFICATION: Mild coronary artery calcifications. LYMPHADENOPATHY: No significant thoracic lymphadenopathy. LUNGS/PLEURA: Patchy mosaic attenuation of the lungs is not reproduced on co ncurrent CT of the abdomen and pelvis, likely reflecting atelectasis. There is no focal airspace consolidation. No pleural effusion or pneumothorax. OTHER FINDINGS: None. UPPER ABDOMEN: Detailed separately. SKELETAL SYSTEM: No acute osseous findings. IMPRESSION: No acute findings in the chest. No evidence of pulmonary embolism. Signer Name: Sharlene Null MD Signed: 10/20/2021 9:18 AM Workstation Name: [id number] Transcribed By: GAGANDEEP Dictated By: SHARLENE NULL MD Electronically Authenticated By: SHARLENE NULL MD Signed Date/Time: 10/20/21917 DD/ 6 TD/TT: [place] [address] Cat Scan Report Signed Patient: SUJATA MANCUSO MR#: [id number] : 1950 Acct:[id number] Age/Sex: 70 / M ADM Date: 10/19/21 Loc: ED Attending Dr: Ordering Physician: BLUE NEW MD Date of Service: 10/20/21 Procedure(s): CT abdomen pelvis w con Accession Number(s): [id number] cc: BLUE NEW MD CT abdomen pelvis w con INDICATION / CLINICAL INFORMATION: Nausea vomiting, unable to tolerate food. TECHNIQUE: Axial CT images were obtained through the abdomen and pelvis after IV contrast. All CT scans at this location are performed using CT dose reduction for ALARA by means of automated exposure control. COMPARISON: None available. FINDINGS: LOWER CHEST: Detailed separately. LIVER: No significant abnormality GALLBLADDER/BILIARY TREE: Gallbladder is contracted. No evidence of acute abnormality. PANCREAS: There is moderate peripancreatic inflammatory stranding, most pronounced in the pancreatic head. Pancreas homogeneous. No organized collection. SPLEEN: No significant abnorma lity ADRENALS: No significant abnormality RIGHT KIDNEY / URETER: No significant abnormality LEFT KIDNEY / URETER: No significant abnormality URINARY BLADDER: No significant abnormality REPRODUCTIVE ORGANS: No significant abnormality STOMACH / BOWEL: Small hiatal hernia. Small bowel is normal in caliber. Colonic diverticulosis without evidence of diverticulitis. The appendix is normal in caliber. LYMPH NODES: No significant adenopathy. VASCULATURE: Moderate atherosclerotic calcification without acute abnormality. OTHER: No free air, free fluid, or focal fluid collection is identified. SKELETAL SYSTEM: No acute osseous findings. IMPRESSION: 1. Moderate peripancreatic inflammatory stranding, most pronounced in the pancreatic head. Findings are most consistent with acute interstitial edematous pancreatitis. No organized collection. 2. No other acute findings. Signer Name: Sharlene Null MD Signed: 10/20/2021 9:16 AM Workstation Name: [id number] Transcribed By: GAGANDEEP Dictated By: SHARLENE NULL MD Electronically Authenticated By: SHARLENE NULL MD Signed Date/Time: 10/20/21915 DD/ 1 TD/TT: - Differential Diagnosis Dehydration, hyperthyroidism, PE, PSBO, UTI Critical care attestation.: If time is entered above; I have spent that time in minutes in the direct care of this critically ill patient, excluding procedure time. ED Disposition Clinical Impression: Nausea & vomiting, Dehydration Disposition: HOME / SELF CARE / HOMELESS Is pt being admited?: No Does the pt Need Aspirin: No Condition: Stable Instructions: Nausea and Vomiting, Adult Additional Instructions: Return to the emergency department should you develop worsening symptoms, inability to tolerate food or liquids, high fever or any other concerns Prescriptions: Ondansetron [Zofran ODT TAB] 8 mg PO Q8HR #20 tab.rapdis Referrals: GLADYS LORA MD [Staff Physician] - 3-5 Days (Dr. Lora has a marine designer. Please follow-up with him for further evaluation) SANDI QUEEN MD [Staff Physician] - 7-10 days (Please follow-up with your primary physician Dr. Queen next week) Time of Disposition: 11:57
[2021-10-20 08:06] LABS: Creatine Kinase MB 1.5 ng/mL (0.0-4.0)
[2021-10-20 08:13] LABS: Free T4 (Free Thyroxine) 1.02 ng/dL (0.76-1.46)
--- NOTE | 2021-10-20 08:50 | Cat Scan Report ---
CT HEAD WITHOUT CONTRAST INDICATION / CLINICAL INFORMATION: Dizziness. TECHNIQUE: All CT scans at this location are performed using CT dose reduction for ALARA by means of automated exposure control. COMPARISON: MRI from 06/18/2018 FINDINGS: BRAIN PARENCHYMA: No acute intracranial hemorrhage. No evidence of recent infarct. No mass effect or midline shift. Encephalomalacia related to remote infarcts involving the cerebellar hemispheres bilat erally, unchanged from 2019 MRI. VENTRICULAR SYSTEM/EXTRA-AXIAL SPACES: Age-related cerebral atrophy. No extra-axial fluid collection. ORBITS: No acute findings SKELETAL SYSTEM/SOFT TISSUES: Normal bones and soft tissues. PARANASAL SINUSES/MASTOID AIR CELLS: No significant abnormality. ADDITIONAL FINDINGS: None. IMPRESSION: 1. No acute findings. 2. Stable chronic ischemic changes related to remote infarcts of the cerebellum. Signer Name: Beny Null MD Signed: 10/20/2021 8:45 AM Workstation Name: [id number]
--- NOTE | 2021-10-20 09:20 | Cat Scan Report ---
CT abdomen pelvis w con INDICATION / CLINICAL INFORMATION: Nausea vomiting, unable to tolerate food. TECHNIQUE: Axial CT images were obtained through the abdomen and pelvis after IV contrast. All CT sc ans at this location are performed using CT dose reduction for ALARA by means of automated exposure c ontrol. COMPARISON: None available. FINDINGS: LOWER CHEST: Detailed separately. LIVER: No significant abnormality GALLBLADDER/BILIARY TREE: Gallbladder is contracted. No evidence of acute abnormality. PANCREAS: There is moderate peripancreatic inflammatory stranding, most pronounced in the pancreatic head. Pancreas homogeneous. No organized collection. SPLEEN: No significant abnormality ADRENALS: No significant abnormality RIGHT KIDNEY / URETER: No significant abnormality LEFT KIDNEY / URETER: No significant abnormality URINARY BLADDER: No significant abnormality REPRODUCTIVE ORGANS: No significant abnormality STOMACH / BOWEL: Small hiatal hernia. Small bowel is normal in caliber. Colonic diverticulosis withou t evidence of diverticulitis. The appendix is normal in caliber. LYMPH NODES: No significant adenopathy. VASCULATURE: Moderate atherosclerotic calcification without acute abnormality. OTHER: No free air, free fluid, or focal fluid collection is identified. SKELETAL SYSTEM: No acute osseous findings. IMPRESSION: 1. Moderate peripancreatic inflammatory stranding, most pronounced in the pancreatic head. Findings a re most consistent with acute interstitial edematous pancreatitis. No organized collection. 2. No other acute findings. Signer Name: Beny Null MD Signed: 10/20/2021 9:16 AM Workstation Name: [id number]
--- NOTE | 2021-10-20 09:22 | Cat Scan Report ---
CT angio chest INDICATION / CLINICAL INFORMATION: Shortness of breath, tachycardia. TECHNIQUE: Axial CT images were obtained through the chest after injection of IV contrast. 3 plane OR P and/or 3D reconstructions were produced. All CT scans at this location are performed using CT dose reduction for ALARA by means of automated exposure control. COMPARISON: Chest radiograph from 06/18/2018. FINDINGS: PULMONARY ARTERIES: No central or segmental pulmonary embolus. THORACIC AORTA: Mild atherosclerotic calcification without acute abnormality. HEART: No significant abnormality. CORONARY ARTERY CALCIFICATION: Mild coronary artery calcifications. LYMPHADENOPATHY: No significant thoracic lymphadenopathy. LUNGS/PLEURA: Patchy mosaic attenuation of the lungs is not reproduced on concurrent CT of the abdome n and pelvis, likely reflecting atelectasis. There is no focal airspace consolidation. No pleural eff usion or pneumothorax. OTHER FINDINGS: None. UPPER ABDOMEN: Detailed separately. SKELETAL SYSTEM: No acute osseous findings. IMPRESSION: No acute findings in the chest. No evidence of pulmonary embolism. Signer Name: Beny Null MD Signed: 10/20/2021 9:18 AM Workstation Name: [id number]
[2021-10-20 11:09] LABS: Albumin 3.7 g/dL (3.9-5); Bilirubin,Direct 0.8 mg/dL (0-0.2)
[2021-10-20 12:10] VITALS: BP 121/66
--- NOTE | 2021-10-21 09:03 | Electrocardiograph Report ---
[facility] Test Date: 2021-10-20 Test Time: 07:16:52 Pat Name: SUJATA MANCUSO Department: Room: Gender: M Settlement Agent: ED : 1950 Requested By: BLUE NEW Order Number: [id number] Reading MD: Mehul Carlton Measurements Intervals [place] Rate: 98 P: 62 [place]: 138 QRS: 31 QRSD: 79 T: -4 QT: 363 QTc: 464 Interpretive Statements Sinus rhythm Atrial premature complex No previous ECG available for comparison Electronically Signed On 10-21-2021 9:02:56 EDT by Mehul Carlton
== END 2021-10-20 12:26 | disposition home or self-care (01) ==
LOC: ED 21:15
DX: R11.2 Nausea with vomiting, unspecified (principal); E86.0 Dehydration; I10 Essential (primary) hypertension; Z86.73 Personal history of transient ischemic attack (TIA), and cerebral infarction without residual deficits; Z87.891 Personal history of nicotine dependence; Z79.899 Other long term (current) drug therapy
CPT/HCPCS: 36415; 70450; 71275; 74177; 80048; 80076; 82550; 82553; 82962; 83690; 83735; 84439; 84443; 84484; 85007; 85025; 93005; 96361; 96374; 99284; J2405; J7030; Q9967

== ENCOUNTER 2021-12-26 06:58 | Outpatient (CLI) | payer MEDICARE ==
[2021-12-26] MEDS ORDERED: SODIUM CHLORIDE 0.9% 500 ML 500 ML IV SCH (08:00)
[2021-12-26 08:07] LABS: Basophils # (Auto) 0.1 K/mm3 (0.0-0.1); Eosinophils % (Auto) 0.8 % (0.0-4.3); Hematocrit 32.1 % (35.5-45.6); Hemoglobin 10.7 gm/dl (11.8-15.2); Lymphocytes % (Auto) 36.8 % (13.4-35.0); Mean Corpuscular HGB Conc 33 % (32-34); Mean Corpuscular Volume 104 fl (84-94); Monocytes # (Auto) 0.7 K/mm3 (0.0-0.8); Monocytes % (Auto) 12.4 % (0.0-7.3); Red Blood Count 3.09 M/mm3 (3.65-5.03); Red Cell Distribution Width 15.3 % (13.2-15.2)
[2021-12-26 08:18] LABS: Partial Thromboplastin Time 26.3 Sec. (24.2-36.6)
[2021-12-26 08:19] LABS: Platelet Count 71 K/mm3 (140-440)
[2021-12-26] MEDS ORDERED: ONDANSETRON 4 MG/2 ML INJ IV SCH (09:00)
[2021-12-26] MEDS ORDERED: HYDROmorphone 2 MG/1 ML INJ IV SCH (09:00)
[2021-12-26] MEDS ORDERED: HYDROmorphone 1 MG/1 ML INJ ONE ×2 (09:13→09:14)
[2021-12-26] MEDS ORDERED: LIDOCAINE (1%) 10 MG/1 ML VIAL 20 ML MDV ONE (09:58)
[2021-12-26] MEDS ORDERED: HYDROmorphone 1 MG/1 ML INJ IV SCH (10:30)
[2021-12-26 12:08] VITALS: BP 143/67
--- NOTE | 2021-12-27 07:48 | Cat Scan Report ---
CT-GUIDED BONE MARROW ASPIRATION AND BIOPSY INDICATION : Thrombocytopenia PROCEDURE: The risks (including but not limited to bleeding and infection) and benefits were explain ed to the patient and informed consent was obtained. All CT examinations performed at this facility utilize dose modulation, iterative reconstruction or weight-based dosing, when appropriate, to reduce radiation dose to as low as reasonably achievable. A time out procedure was performed. The procedu re site was prepped and draped in the usual sterile fashion and lidocaine was used for local anesthes ia. Under CT guidance, the right posterior iliac wing was selected for biopsy. An 11 gauge needle was ad vanced to the posterior margin of the iliac wing, cortex breached, and 4.5 mL bone marrow aspirate ob tained. The needle was then advanced and a bone marrow biopsy was obtained measuring approximately 1 cm. Samples were given directly to the settlement technician who was present during the exam. The patient tolerated the procedure well with no complications. IMPRESSION: Technically successful bone marrow aspirate and biopsy. Signer Name: Steven Edwards Jr, MD Signed: 12/27/2021 7:44 AM Workstation Name: [id number]
== END 2021-12-26 12:34 | disposition home or self-care (01) ==
LOC: CATHLABREC 06:58 → CT 06:58 → CATHLABREC 12:34
PROVIDERS: ATTEND Internal Medicine Hematology & Oncology
DX: D69.6 Thrombocytopenia, unspecified (principal); E78.00 Pure hypercholesterolemia, unspecified; I10 Essential (primary) hypertension; J44.9 Chronic obstructive pulmonary disease, unspecified; K21.9 Gastro-esophageal reflux disease without esophagitis; Z79.899 Other long term (current) drug therapy; Z87.891 Personal history of nicotine dependence; Z98.890 Other specified postprocedural states; D64.9 Anemia, unspecified; Z86.73 Personal history of transient ischemic attack (TIA), and cerebral infarction without residual deficits
CPT/HCPCS: 36415; 38222; 85007; 85025; 85097; 85610; 85730; 88161; 88305; 88311; 88313; J1170; J2405; J7040